=== PATIENT | male | born 2000 | race American Indian/Alaskan Native ===

== ENCOUNTER 2021-03-19 10:37 | Emergency (ER) | payer SELFPAY ==
[2021-03-19 11:12] VITALS: BP 145/85
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
== END 2021-03-19 11:51 | disposition left against medical advice (07) ==
LOC: ED 10:37
DX: G89.29 Other chronic pain (principal); M79.642 Pain in left hand; Z53.21 Procedure and treatment not carried out due to patient leaving prior to being seen by health care provider

== ENCOUNTER 2022-02-06 10:47 | Emergency (ER) | payer SELFPAY ==
[2022-02-06 11:00] VITALS: BP 137/75
[2022-02-06 11:54] LABS: Bilirubin,Urine NEG (Negative); Blood,Urine NEG (Negative); Color,Urine Straw (Yellow); Mucus,Urine FEW /HPF; Protein,Urine <15 mg/dL mg/dL (Negative); Urobilinogen,Urine < 2.0 mg/dL (<2.0)
[2022-02-06] MEDS ORDERED: LIDOCAINE-MPF (1%) 10 MG/1 ML VIAL 5 ML INFILTRATI ONE (15:00)
--- NOTE | 2022-02-06 16:11 | Emergency Department Report ---
ED Male HPI - General Chief complaint: Urogenital-Male Stated complaint: URINE DISCOMFORT Source: patient Mode of arrival: Ambulatory Limitations: No Limitations - History of Present Illness Initial comments: Patient is a 21-year-old -Luxembourger male with no past medical history presents to the ED with complaint of acute onset dysuria, urinary frequency and urgency and penile discharge for the last 1 week after having unprotected sexual intercourse with a new sexual partner. Patient states that the pain on the discharge have increased in severity in the last 3 days. Patient denies testicular pain, hematuria, abdominal pain, low back pain, chest pain or shortness of breath, fever, chills, diarrhea or nausea and vomiting. MD Complaint: penile discharge, dysuria, other (Urinary frequency and urgency) -: Sudden, week(s) (1) Location: penis Radiation: none Severity: moderate Severity scale (0 -10): 4 Quality: burning, sharp Consistency: intermittent Improves with: none Worsens with: urination denies other symptoms, discharge. denies: swelling, mass, rash, urinary retention, blood in urine, dysuria, fever, nausea/vomiting, incontinence - Related Data Sexually active: Yes Previous Rx's Medication Instructions Recorded Last Taken Type Doxycycline Hyclate 100 mg PO Q12H #28 cap 02/06/22 Unknown Rx Allergies Allergy/AdvReac Type Severity Reaction Status Date / Time No Known Allergies Allergy Verified 02/06/22 11:00 ED Review of Systems ROS: Stated complaint: URINE DISCOMFORT Other details as noted in HPI Constitutional: denies: chills, fever Eyes: denies: eye pain, eye discharge, vision change ENT: denies: ear pain, throat pain Respiratory: denies: cough, shortness of breath, wheezing Cardiovascular: denies: chest pain, palpitations Endocrine: no symptoms reported Gastrointestinal: denies: abdominal pain, nausea, diarrhea Genitourinary: urgency, dysuria, frequency, discharge. denies: hematuria, testicular pain, testicular mass Musculoskeletal: denies: back pain, joint swelling, arthralgia Skin: denies: rash, lesions Neurological: denies: headache, weakness, paresthesias Psychiatric: denies: anxiety, depression Hematological/Lymphatic: denies: easy bleeding, easy bruising ED Past Medical Hx - Past Medical History Previous Medical History?: No - Surgical History Past Surgical History?: No - Social History Smoking Status: Never Smoker Substance Use Type: Alcohol, Marijuana - Medications Home Medications: Home Medications Medication Instructions Recorded Confirmed Last Taken Type Doxycycline Hyclate 100 mg PO Q12H #28 cap 02/06/22 Unknown Rx ED Physical Exam - General Limitations: No Limitations General appearance: alert, in no apparent distress - Head Head exam: Present: atraumatic, normocephalic, normal inspection - Eye Eye exam: Present: normal appearance, PERRL, EOMI Pupils: Present: normal accommodation - ENT ENT exam: Present: normal exam, normal orophraynx, mucous membranes moist, TM's normal bilaterally, normal external ear exam - Neck Neck exam: Present: normal inspection, full ROM. Absent: tenderness - Respiratory Respiratory exam: Present: normal lung sounds bilaterally. Absent: respiratory distress, wheezes, rales, rhonchi, chest wall tenderness, accessory muscle use, prolonged expiratory - Cardiovascular Cardiovascular Exam: Present: regular rate, normal rhythm, normal heart sounds. Absent: systolic murmur, diastolic murmur, rubs, gallop - GI/Abdominal GI/Abdominal exam: Present: soft, normal bowel sounds. Absent: distended, tenderness, guarding, rebound, hyperactive bowel sounds, hypoactive bowel sounds, organomegaly - External exam: Present: other (Genital exam deferred at this time) - Extremities Exam Extremities exam: Present: normal inspection, full ROM, normal capillary refill - Back Exam Back exam: Present: normal inspection, full ROM. Absent: tenderness, CVA tenderness (R), CVA tenderness (L), muscle spasm, paraspinal tenderness, vertebral tenderness - Neurological Exam Neurological exam: Present: alert, oriented X3, CN II-XII intact, normal gait, reflexes normal - Psychiatric Psychiatric exam: Present: normal affect, normal mood - Skin Skin exam: Present: warm, dry, intact, normal color. Absent: rash ED Course Vital Signs 02/06/22 10:58 Temperature 98.2 F Pulse Rate 67 Respiratory 14 Rate Blood Pressure 137/75 O2 Sat by Pulse 99 Oximetry ED Medical Decision Making - Medical Decision Making This is a 21-year-old -Lux[place]bour[place] male with no past medical history presents to the ED with complaint of acute onset dysuria, urinary frequency and urgency and penile discharge for the last 1 week after having unprotected sexual intercourse with a new sexual partner. Patient states that the pain on the discharge have increased in severity in the last 3 days. In the ED, patient is alert and oriented x3 and is not in any distress. Patient was treated empirical ly for gonorrhea with Rocephin 500 mg intramuscular injection based on the history of dysuria and penile discharge. Patient was discharged home on doxycycline 100 mg twice a day and advised to follow-up with [facility] for further STD testing. Patient was also advised to ensure that his sexual partner gets treated for the same. Patient is advised and counseled on the importance of observing safe sexual practices. Patient advised return to the ED immediately if symptoms get worse. - Differential Diagnosis Urethritis; STD; gonorrhea; chlamydia; UTI Critical care attestation.: If time is entered above; I have spent that time in minutes in the direct care of this critically ill patient, excluding procedure time. ED Disposition Clinical Impression: STD (sexually transmitted disease), Acute gonococcal urethritis Disposition: 01 HOME / SELF CARE / HOMELESS Is pt being admited?: No Does the pt Need Aspirin: No Condition: Stable Instructions: Gonococcal Urethritis (ED), Urethritis, Adult, Gonorrhea Additional Instructions: Take medication with food, drink plenty of fluids and follow-up with the [facility] in 7 to 10 days for further evaluation. Ensure that you get tested for other STDs including HIV and syphilis. Ensure that your sexual partner gets treated for the same. Return to the ED immediately if symptoms get worse. Prescriptions: Doxycycline Hyclate 100 mg PO Q12H #28 cap Referrals: [facility] [Outside] - 7-10 days Time of Disposition: 16:04 Print Language: YI
== END 2022-02-06 17:05 | disposition home or self-care (01) ==
LOC: ED 10:47
DX: A54.01 Gonococcal cystitis and urethritis, unspecified (principal); Z20.2 Contact with and (suspected) exposure to infections with a predominantly sexual mode of transmission
CPT/HCPCS: 81001; 87591; 99283; J0696; J3490